=== PATIENT | female | born 1975 | race African-American/Black ===

== ENCOUNTER 2020-08-22 00:30 | Emergency (ER) | payer SELFPAY ==
[~2020-08-22] VITALS: Ht 167.6 cm; Wt 82.0 kg
[2020-08-22 01:25] VITALS: BP 168/95
== END 2020-08-22 02:01 | disposition left against medical advice (07) ==
LOC: ER 00:30
DX: F41.9 Anxiety disorder, unspecified (principal); I10 Essential (primary) hypertension
CPT/HCPCS: 93005; 99283